=== PATIENT | female | born 1960 | race Caucasian/White ===

== ENCOUNTER → 2016-06-08 | Outpatient (CLI) | payer OTHER ==
--- NOTE | 2016-06-09 05:51 | PAP/PSG TECHNICIAN REPORT ---
[facility] Door Tender Polysomnogram Report Study name: None Report date: 06/09/2016 Study date: 06/08/2016 Referring Physician: Tiffanie Hancock M.D. Name: NICKY BYRNES Interpreting Physician: Jessica Hancock M.D. Date of : 1960 Door Tender: Soco Lizarraga [facility]. Sex: Female Age: 55 StudyType: PSG Weight: 200 lbs Height: 55 years, Height 5' 4" Neck Circum:14.25 inches BMI: 34.33 Medications: Gabapentin 300 mg, Citalopram 40mg, Meclizine 25mg, Bupropion 150mg, Xanax 1mg, Meloxicam 15mg, Triamterene-HCTZ, 37.5-25mg, Hydroxyzine 25mg, aristocort 0.1% cream, Zantac 150 mg, Topamax 25 mg, Aspirin 81 mg, Lipitor 40 mg, Levothyroxine 50 mcg Patient History 55 yr. old female here for a possible split night sleep study with [id number]. Patient complains of snoring, witnessed apneas, and SOB. Patients Gary sleepiness scale score is 2/24. Parameters Monitored NPSG: E1-M2, E2-M1, Fp1-M2, Fp2-M1, F3-M2, F4-M2, F4-M1, C3-M2, C4-M2, C4-M1, O1-M2, O2-M2, O2-M1, T3-M2, T4-M1, P3-M2, P4-M1, CHIN1, CHIN2, HR, EKG, Legs, PFLOW, SNOR, FLOW, CFLOW, Tidal Volume, THOR, ABDO, SpO2, PLTH, CPRESS, ETCO2 Wave, ETCO2, pH Sleep Architecture Sleep Stages Time at Lights Off 8:31:53 PM STAGES Time (min.) TST (%) Time at Lights On 5:36:53 AM Wake 100.5 -- Total Recording Time (TRT) 545.00 min. N1 15.5 3 Total Sleep Period (TSP) 470.5 min. N2 316.5 71 Total Sleep Time (TST) 444.5min. N3 26.0 6 Awake Time 100.5 min. REM 86.5 19 Wake after Sleep Onset 26.5 min. Sleep Efficiency (SE) 82 % Sleep Onset Latency (ADITHYA) 74.0 min. Number of Stage 1 Shifts None Awakenings 20 Stage Changes 79 Number of REM periods 7 REM 86.5 19 REM Latency 179.0 min. NREM 358.0 81 Body Position Analysis Supine Right Left Side Prone Vertical Total Sleep Time (min.) 375.1 69.6 79.0 148.61 0.0 2.4 Total Sleep Time (%) 67% 16% 18% 33 0% N/A% Total Sleep Time REM (min.) 74.0 11.0 1.5 None 0.0 0.0 Total Sleep Time NREM (min.) 221.9 58.6 77.5 None 0.0 0.0 Intermittent Wake (min.) 79.2 15.9 3.0 None 0.0 2.4 Total Sleep Period (%) 64% None None None None None Arousals Myoclonus (PLM) * Events Count Index Events Count Index Spontaneous 4 1 Events Awake (PLMW) 42 25.1 Respiratory 7 1.1 Events Asleep w/ Arousal (PLMA) 7 0.9 PLM 6 1 Events Asleep w/o Arousal (PLMS) 44 5.9 Snoring 13 2 Total Asleep 51 6.9 Total 29 4 Total 93 10 Respiratory Analysis * CA OA MA CH H RERA Total Count 0 7 0 0 126 0 133 Index 0.0 0.9 0.0 0 17.0 0 18.0 Mean Duration 0.0 19.4 0.0 0.00 21.5 0.0 21.4 Longest Duration 0.0 27.6 0.0 0.00 0.0 0.0 54.4 Respiratory Event Summary Total Supine ~Supine Right Left Prone REM NREM Apneas Count 7 7 0 0 0 N/A 4 3 Index 0.9 1 0 0.0 0.0 N/A 3 1 Hypopneas (4% Desat) Count 126 109 17 7 10 N/A 57 69 Index 17.0 22.1 7 6.0 7.6 N/A 39.5 11.6 Apneas & All Hypopneas Count 133 116 17 7 10 N/A 61 72 Index 18.0 24 7 6 8 N/A 42.3 12.1 Respiratory Events (Digital Operations Analyst+All Hyp+RERA) Count 133 116 17 7 10 N/A 61 72 Index 18.0 24 7 6.0 7.6 N/A 42.3 12.1 Respiratory Related Arousal Count 7 116 1 0 1 N/A 1 7 Index 1.1 1 0 0 1 N/A 1 1 Snoring Analysis Supine Right Left Prone REM NREM Total Snore duration 55.6 min Snores count 1,663 469 467 N/A 426 2,173 2,599 Snore mean duration 1.3 Sec Snores index 337 404 355 N/A 295.5 364.2 350.8 TST with snoring (%) 12.5% SpO2 Analysis Total REM NREM Awake <50% 0.0 min. 0.0 min. 0.0 min. 0.0 min. 51 - 60% 0.0 min. 0.0 min. 0.0 min. 0.0 min. 61 - 70% 0.0 min. 0.0 min. 0.0 min. 0.0 min. 71 - 80% 6.4 min. 3.8 min. 2.1 min. 0.5 min. 81 - 90% 277.1 min. 49.9 min. 150.0 min. 77.2 min. 91 - 100% 261.2 min. 32.8 min. 206.0 min. 22.5 min. Average 90 88 90 90 Minimum SpO2 70 72 70 78 Desaturation Event Index 16.2 42.3 12.6 7.2 # Desat. Events below 89% 131 61 62 8 Time(%) with Saturation below 89% 17.8 6.6 8.9 2.3 Time(min.) with Saturation below 89% 96.9 35.8 48.7 12.4 Heart Rate Analysis End Tidal CO2 Analysis Min (bpm) Max (bpm) Average (bpm) TSP (mins) % of TSP Awake 66 98 79 Above 55 mmHg 2.7 0.6 NREM 64 93 73 50-55 mmHg 170.1 38.3 REM 64 84 73 45-50 mmHg 150.9 34.0 Overall 64 93 73 40-45 mmHg 53.4 12.0 35-40 mmHg 31.8 7.2 30-35 mmHg 13.5 3.0 Average ETCO2 0.2 Supplemental O2 Values Minimum O2 level: None Value Start Time End Time Door Tender Comments MS. Byrnes slept in the right, left, and supine positions. No cardiac arrhythmia. PLMs noted. No bruxism noted. Snoring was noted and scored as a 3 on a scale of 0 through 5. (0=no snoring, 5=snoring loud enough to be heard through a closed door or down the [address]) MS. Byrnes did not wake to use the restroom during the night. MS. Byrnes stated, I did not sleep very much. The final report will be interpreted and signed by a sleep physician. The completed physician report will then be placed in the patient medical record. Therapy (cm H2O) 0 TIB (min.) 545.0 TST (min.) 444.5 Sleep Onset (min.) 74.0 REM Onset From Sleep (min.) 179.0 Sleep Efficiency % 82 Wakefulness (%) 18 Wakefulness (min.) 100.5 NREM 1 (%) 3 NREM 1 (min.) 15.5 NREM 2 (%) 71 NREM 2 (min.) 316.5 NREM 3 (%) 6 NREM 3 (min.) 26.0 REM (%) 19 REM (min.) 86.5 # Arousals 29 Arousal Index 4 # Snore 2,599 Snore Index 350.8 AHI 18.0 AHI Supine 24 AHI Non-Supine 7 NREM AHI 12.1 REM AHI 42.3 RDI 18.0 # Obstructive Apnea 7 # Central Apnea 0 # Mixed Apnea 0 # Hypopneas 126 RERAs 0 Total Respiratory Events 137 Time Below SpO2 89% (min.) 84.5 Mean NREM SpO2 (%) 90 Mean REM SpO2 (%) 88 Mean Sleep SpO2 (%) 90 Min NREM SpO2 (%) 70 Min REM SpO2 (%) 72 Position Supine (min.) 375.1 Position Non-supine (min.) 148.6 LM Index Sleep 6.9 LM Index NREM 4.2 LM Index REM 18.0 Mean Heart Rate (bpm) 73 Min Heart Rate (bpm) 64
--- NOTE | 2016-06-14 08:00 | POLYSOMNOGRAPH REPORT ---
REFERRING PERSON: Jessica Hancock MD IT BUSINESS SYSTEMS ANALYST: Soco Lizarraga. Ms. Byrnes is a 55-year-old female, sent for a possible split night sleep study. She complains of snoring, witnessed apneas and shortness of breath. Her Gratis sleepiness scale score on the evening of this study is 2. BMI is 34.33. Following the technical and digital specifications of the [place] [employer] (AASM) a standard diagnostic polysomnogram was performed monitoring EEG, EOG, EMG (chin and leg deviations), oxygen saturation, body position, digital video, respiratory effort and airflow. The sleep Stage and event scoring was based on the AASM Manual for the Scoring of Sleep and Associated Events 2007 edition. Apneas are defined as a drop in the peak thermal sensor excursion by >90% of baseline for at least 10 seconds. Hypopneas were scored using the 4% oxygen desaturation rule (4A-[employer]) and a decrease in the nasal pressure excursions by >30% of baseline for at least 10 seconds. Respiratory effort-related arousal (RERA's) is defined as a sequence of breaths lasting at least 10 seconds characterized by increasing respiratory effort or flattening of the nasal pressure waveform leading to an arousal from sleep when the sequence of breaths does not meet criteria for an apnea or hypopnea. Apnea Hypopnea index (AHI) is defined as the number of apneas and hypopneas occurring in an hour of sleep. Respiratory disturbance index (RDI) is defined as the number of apneas, hypopneas, and RERA's occurring in an hour of sleep. Ms. Byrnes's total sleep period time was 470.5 minutes. Total sleep time was 444.5 minutes. Sleep efficiency was 82%. Latency to sleep onset was 74 minutes. Wake after sleep onset was 26.5 minutes. Total non-REM sleep time was 358 minutes. She spent 3% of that time in N1 sleep, 71% in N2 sleep and 6% in N3 sleep. REM latency was 179 minutes. Total REM sleep time was 86.5 minutes or 19% of total sleep time. There were 29 cortical arousals from sleep; 13 of these arousals were due to snoring, 60 due to periodic limb movements, 7 due to respiratory events and 4 were spontaneous. There were 51 periodic limb movements. Limb movement index was 6.9. Limb movement with arousal index was 0.9. On this sleep study, there were no central, 7 obstructive and no mixed apneas. Additionally, there were 126 hypopneas. Apnea-hypopnea index was 18, consistent with moderately severe sleep apnea. The supine AHI was 24 and REM AHI was 42.3. A 2599 snoring events were recorded. Total sleep time with snoring was 12.5%. Mean saturation was borderline low at 90%. Desaturations with respiratory events were noted to 70%. Saturations were lowest in periods of REM sleep. Saturations were less than 89 for 96.9 minutes of recorded time. There was no cardiac ectopy noted on this study. Heart rates ranged from a low of 64 beats per minute to a high of 93 beats per minute during sleep. End-tidal CO2 was recorded on this test. End tidal CO2s were above 55 mmHg for 0.6% of total sleep period time, between 50 and 55 mmHg for 38.3%, between 45 and 50 mmHg for 34%, between 40 and 45 mmHg for 12%, between 35 and 40 mmHg for 7.2% and between 30 and 35 mmHg for 3.0% of total sleep period time. IMPRESSION AND PLAN: A 55-year-old female, with evidence of moderately severe sleep apnea which is severe in REM sleep as well as significant nocturnal hypoxemia. This patient would likely benefit from positive airway pressure therapy. She should return to sleep lab for a full night titration and then based on those results be started on equipment at home. A download from her machine can then be reviewed in 1 month, both to check compliance as well as AHI and further pressure adjustments can occur at that time. This should improve the patient's snoring, nocturnal hypoxemia as well as apnea.
== END | disposition home or self-care (01) ==
LOC: C.NEUR 20:00
PROVIDERS: ATTEND Family Medicine
DX: R06.83 Snoring (principal); G47.10 Hypersomnia, unspecified